=== PATIENT | female | born 1950 | race Caucasian/White ===

== ENCOUNTER → 2016-09-24 | Outpatient (CLI) | payer MEDICARE, BC | END | disposition home or self-care (01) | LOC: YCFC.O 07:40 | PROVIDERS: ATTEND Nurse Practitioner Family | DX: I10 Essential (primary) hypertension (principal); J44.9 Chronic obstructive pulmonary disease, unspecified; Z13.220 Encounter for screening for lipoid disorders ==

== ENCOUNTER → 2016-10-22 | Outpatient (CLI) | payer BC, MEDICARE | END | disposition home or self-care (01) | LOC: YCFC.O 07:39 | PROVIDERS: ATTEND Nurse Practitioner Family | DX: E03.9 Hypothyroidism, unspecified (principal) ==

== ENCOUNTER → 2016-11-07 | Outpatient (CLI) | payer BC, MEDICARE ==
--- NOTE | 2016-11-08 08:23 | RAD ---
EXAM DESCRIPTION: Hand,Right 2 Views CLINICAL HISTORY: PAIN IN RIGHT INDEX FINGER COMPARISON: None Available. TECHNIQUE: AP, LATERAL, AND OBLIQUE FINDINGS: Two-view right hand shows no fracture or dislocation. Advanced degenerative changes at the base of the thumb at the carpal metacarpal articulation is present. Soft tissue swelling of the index finger is present. A fracture or dislocation is not apparent. No destructive process is seen. The bones are adequately mineralized. IMPRESSION: 1. Soft tissue swelling of the index finger without fracture or dislocation. Electronically signed by: Constantine Nolasco MD 11/08/2016 8:21 AM CDT
== END | disposition home or self-care (01) ==
LOC: YCFC.O 09:29
PROVIDERS: ATTEND Nurse Practitioner Family
DX: L03.011 Cellulitis of right finger (principal)

== ENCOUNTER → 2016-11-29 | Outpatient (CLI) | payer BC, MEDICARE ==
--- NOTE | 2016-11-29 15:53 | US ---
EXAM DESCRIPTION: Soft Tissue,Extremity CLINICAL HISTORY: RUPTURE OF FLEXOR TENDON OF FINGER (RT HAND). Swelling between the thumb and index finger on the volar aspect. COMPARISON: None Available. TECHNIQUE: Transcutaneous scanning: Two-dimensional and Doppler modes. FINDINGS: The flexor tendon of the right index finger is intact. Minimal effusion in the right index metacarpal phalangeal joint, seen better on the volar aspect, and also in the metacarpophalangeal joint and PIP joint on the dorsal aspect. No significant effusion in the other joints. Extensor tendon is unremarkable.. IMPRESSION: No significant tendon injuries are seen in the right index finger. Joint effusions are present Electronically signed by: Parker Mace MD 11/29/2016 3:51 PM CDT
== END | disposition home or self-care (01) ==
LOC: US 13:04
PROVIDERS: ATTEND Orthopaedic Surgery
DX: S66.110A Strain of flexor muscle, fascia and tendon of right index finger at wrist and hand level, initial encounter (principal); X58.XXXA Exposure to other specified factors, initial encounter

== ENCOUNTER → 2017-11-05 | Outpatient (CLI) | payer BC, MEDICARE | LOC: YCFC.O 09:10 | PROVIDERS: ATTEND Nurse Practitioner Family | DX: E03.9 Hypothyroidism, unspecified (principal); I10 Essential (primary) hypertension; Z68.42 Body mass index [BMI] 45.0-49.9, adult ==

== ENCOUNTER → 2018-05-18 | Outpatient (CLI) | payer BC, MEDICARE | LOC: LAB.O 07:23 | PROVIDERS: ATTEND Nurse Practitioner Family | DX: E03.9 Hypothyroidism, unspecified (principal) ==

== ENCOUNTER → 2018-07-07 | Outpatient (CLI) | payer BC, MEDICARE ==
--- NOTE | 2018-07-07 11:12 | RAD ---
EXAM DESCRIPTION: Chest,2 Views CLINICAL HISTORY: DYSPNEA COMPARISON: None TECHNIQUE: PA/lateral FINDINGS: There is no acute appearing cardiac or pulmonary abnormality. Heart size is normal with normal pulmonary vascularity. No pleural effusion or pneumothorax. Linear densities in the lung bases may be crowded vessels, discoid atelectasis or linear scarring acute pneumonia is not thought as likely. Lateral view shows intact sternum and T-spine. IMPRESSION: Bilateral lower lobe discoid atelectasis. Electronically signed by: Dniesh Yadav MD 07/07/2018 11:09 AM CDT
== END ==
LOC: LAB.O 09:48
PROVIDERS: ATTEND Nurse Practitioner Family
DX: J98.11 Atelectasis (principal)

== ENCOUNTER → 2019-04-14 | Outpatient (CLI) | payer BC, MEDICARE | LOC: LAB.O 07:07 | PROVIDERS: ATTEND Nurse Practitioner | DX: I10 Essential (primary) hypertension (principal); E03.9 Hypothyroidism, unspecified; Z13.220 Encounter for screening for lipoid disorders ==

== ENCOUNTER 2020-04-08 12:57 | Emergency (ER) | payer BC, MEDICARE ==
[2020-04-08] MEDS ORDERED: predniSONE 20 MG TAB PO ONE (13:30)
[2020-04-08] MEDS ORDERED: IPRATROPIUM/ALBUTEROL 3 ML VIAL NEB ONE (13:31)
--- NOTE | 2020-04-08 14:04 | RAD ---
EXAMINATION: Chest x-ray one view. INDICATION: Cough. Shortness of breath COMPARISON: 07/07/2018 TECHNIQUE: Frontal radiograph chest. FINDINGS: Overlying EKG leads and wires obscure portions of the lungs. The cardiac silhouette is enlarged and stable Bilateral lower lung zone airspace opacities with blunting of both costophrenic angles. There are overlying airspace opacities. Mildly increased interstitial markings are present throughout both lungs. There is no pneumothorax. IMPRESSION: Suspected mild CHF/fluid overload changes. Electronically signed by: Andre Martin MD 04/08/2020 2:03 PM [facility]
[2020-04-08] MEDS ORDERED: CALCIUM GLUCONATE INJ 1 GM/10 ML VIAL IV ONE ×2 (14:28→19:17)
[2020-04-08] MEDS ORDERED: SODIUM BICARBONATE SYRINGE 50 MEQ/50 ML SYG IV ONE ×2 (14:28→19:17)
[2020-04-08] MEDS ORDERED: SODIUM CHLORIDE 0.9% (FLUSH) 10 ML SYG IV PRN (14:28)
[2020-04-08] MEDS ORDERED: DEXTROSE 50% 25 GM/50 ML SYG IV ONE ×2 (14:28→19:17)
[2020-04-08] MEDS ORDERED: SOD POLYSTYRENE SULFONATE 15 GM/60 ML BTTL PO ONE ×2 (14:28→19:17)
[2020-04-08] MEDS ORDERED: INSULIN, REG.(HUMAN) 100 U/ML VIAL IV ONE ×2 (14:28→19:17)
[2020-04-08] MEDS ORDERED: SODIUM CHLORIDE 0.9% 1000ML 1,000 ML IVS ONE ×2 (14:49→18:12)
[2020-04-08] MEDS ORDERED: CEFEPIME 2 GM in SODIUM CHL 0.9% 100ML MINI-BAG 100 ML IVPB ONE (17:26)
[2020-04-08] MEDS ORDERED: VANCOMYCIN HCL INJ 1,000 MG in SODIUM CHLORIDE 0.9% 250ML 250 ML IVPB ONE (17:26)
[2020-04-08] MEDS ORDERED: ACETAMINOPHEN SUPPOSITORY 650 MG PR ONE (17:37)
--- NOTE | 2020-04-08 17:55 | ED.PDOC ---
History of Present Illness - General Chief Complaint: Respiratory Problem Stated Complaint: SOB, lethargy, not eating well Time Seen by Provider: 04/08/20 13:16 Additional Information: History is provided primarily by the patient's daughter due to mental status changes. The patient reportedly has a history of hypothyroidism, COPD on home O2, and morbid obesity. She worked at [employer] until she retired last year. Her daughter states that during the past year she has left her house only one time. She is primarily confined to a recliner and is essentially only able to ambulate to and from the restroom. She notes that for the past three days she has been complaining of "pain" that she has been unable to localize. She also has been sleeping more and had decreased PO intake. Today her daughter felt like she was more confused than usual and she has not been eating or drinking. She is complaining of being short of breath. No fevers or known COVID contacts. She has had some mild cough. History is otherwise limited due to patient's mental status change. - History of Present Illness Allergies/Adverse Reactions: Allergies NO KNOWN ALLERGY Allergy (Verified 04/08/20 14:51) Review of Systems - Review of Systems Unable to Obtain Due To: clinical condition - altered mental status Past Medical History (General) - Patient Medical History Hx of COPD: Yes Hx Cardiac Disorders: No Hx Congestive Heart Failure: No Hx Hypertension: Yes Hx Thyroid Disease: Yes Hx Diabetes: No Hx Cancer: No Hx MRSA: Yes - Groin 2012 MRSA Source:: Wound Surgical History: tonsillectomy - Vaccination History Hx Influenza Vaccination: No Hx Pneumococcal Vaccination: No - Social History Hx Tobacco Use: Yes Hx Alcohol Use: No Hx Substance Use: No Hx Substance Use Treatment: No Hx Depression: No - Female History Patient is a Female of Child Bearing Age (10 -59 yrs old): No Patient : No Family Medical History - Family History Mother Living Status: Hx Family;Other: COPD emphysea Physical Exam - Physical Exam General Appearance: Agitated, Anxious, Obvious distress, Ill Appearing, Other - Morbidly obese Eyes, Ears, Nose, Throat Exam: normal ENT inspection Neck: non-tender, full range of motion, supple, normal inspection Respiratory: respiratory distress, decreased breath sounds, accessory muscle use, wheezing - inspiratory and expiratory Cardiovascular/Chest: regular rate, rhythm, other - Pitting edema bilateral lower extremities Gastrointestinal/Abdominal: non tender, soft, no organomegaly Extremity: pedal edema, other - stasis dermatitis to bilateral lower extremities Neurologic: no motor/sensory deficits, alert, disoriented x 3 Skin Exam: other - mild skin breakdown appreciated underneath pannus, stage II pressure ulcers noted to her buttocks Progress - Progress Progress: 04/08/20 19:[address] Harrell at [facility], accepts for transfer. - Results/Orders Results/Orders: 04/08/20 14:28 Insulin, Reg.(Human) [HumuLIN R] DOSE units IV ONCE ONE Sodium Chloride 0.9% (Flush) [Saline Flush Syringe] 3 ml IV PRN PRN 04/08/20 17:45 EKG STAT 04/08/20 17:58 BLOOD CULTURE Stat 04/08/20 19:17 Insulin, Reg.(Human) [HumuLIN R] DOSE units IV ONCE ONE 04/08/20 19:40 Head [CT] Stat Laboratory Results - last 24 hr 04/08/20 04/08/20 04/08/20 13:48 13:48 13:48 WBC 15.2 H RBC 3.29 L Hgb 9.3 L Hct 31.3 L MCV 95.3 MCH 28.3 MCHC 29.7 L RDW 18.7 H Plt Count 406 H MPV 7.6 Absolute Neuts (auto) Not Reportable Absolute Lymphs (auto) Not Reportable Absolute Monos (auto) Not Reportable Absolute Eos (auto) Not Reportable Neutrophils % Not Reportable Neutrophils % (Manual) 86.0 H Lymphocytes % Not Reportable Lymphocytes % (Manual) 6.0 Monocytes % Not Reportable Monocytes % (Manual) 3.0 Eosinophils % Not Reportable Basophils % Not Reportable Band Neutrophils 5.0 H Eosinophils 0.0 Basophils 0.0 Platelet Estimate Increased Normal RBC Morphology 1+ovalocytes Sodium 140 Potassium 7.8 H* Chloride 110 Carbon Dioxide 9 L* Anion Gap 28.8 H BUN 170 H* Creatinine 8.04 H* BUN/Creatinine Ratio 21.1 H Random Glucose 120 H Serum Osmolality Not Reportable Lactic Acid Calcium 7.7 L Total Bilirubin 0.6 AST 46 H ALT 29 Alkaline Phosphatase 100 Creatine Kinase 1829 H* CK-MB (CK-2) 27.5 H* CK-MB (CK-2) % 1.50 Troponin I 0.02 Serum Total Protein 7.6 Albumin 3.1 L Globulin 4.5 H Albumin/Globulin Ratio 0.7 L 04/08/20 04/08/20 13:48 16:36 WBC RBC Hgb Hct MCV MCH MCHC RDW Plt Count MPV Absolute Neuts (auto) Absolute Lymphs (auto) Absolute Monos (auto) Absolute Eos (auto) Neutrophils % Neutrophils % (Manual) Lymphocytes % Lymphocytes % (Manual) Monocytes % Monocytes % (Manual) Eosinophils % Basophils % Band Neutrophils Eosinophils Basophils Platelet Estimate Normal RBC Morphology Sodium 140 Potassium 7.2 H* Chloride 110 Carbon Dioxide 11 L* Anion Gap 26.2 H BUN 180 H* Creatinine 8.58 H* BUN/Creatinine Ratio 21.0 H Random Glucose 164 H D Serum Osmolality Not Reportable Lactic Acid 1.6 Calcium 7.8 L Total Bilirubin AST ALT Alkaline Phosphatase Creatine Kinase CK-MB (CK-2) CK-MB (CK-2) % Troponin I Serum Total Protein Albumin Globulin Albumin/Globulin Ratio Medical Decision Making Patient brought to ED with three days of "pain" unable to localize with shortness of breath. In the ED she was noted to have COPD exacerbation, improved with steroids and nebs. Labs indicative of acute renal failure secondary to sepsis without shock. IVF were held due to clinical volume overload and findings of CHF. She has wounds to her lower extremity and buttocks with surrounding erythema concerning for source. After blood cultures she was started on broad spectrum Cefepime and Vancomycin. She was treated with kayexalate, calcium, insulin/d50, albuterol, bicarbonate for her hyperkalemia. EKG shows mild peaked t-waves without significant QRS widening. She is transferred to outside hospital for higher level of care, specialty evaluation. Sergio Mast MD Emergency Medicine Physician Number [id number] - EKG/XRAY/CT Comments: 1301 sinus rhythm, occasional PACs, right axis, normal intervals no STEMI Departure - Departure Clinical Impression: Hyperkalemia, COPD exacerbation Acute renal failure (ARF) Qualifiers: Acute renal failure type: unspecified Qualified Code(s): N17.9 - Acute kidney failure, unspecified Sepsis Qualifiers: Sepsis type: sepsis due to unspecified organism Sepsis acute organ dysfunction status: with acute organ dysfunction Severe sepsis acute organ dysfunction type: acute renal failure Acute renal failure type: unspecified Severe sepsis shock status: without septic shock Qualified Code(s): A41.9 - Sepsis, unspecified organism Disposition: Transfer to Hospital Condition: Fair Departure Forms: ED Discharge - Pt. Copy, Patient Portal Self Enrollment Referrals: Tabitha Yan FNP [Primary Care Provider] - 1-2 Weeks Critical Care Note - Critical Care Note Total Time (mins): 35 Comments: 35 minutes of critical care time spent to prevent severe electrolyte abnormality, renal failure, sepsis, shock.
[2020-04-08] MEDS ORDERED: ALBUTEROL SULFATE 2.5 MG/3 ML VIAL NEB ONE (19:17)
[2020-04-08] MEDS ORDERED: SODIUM BICARBONATE VIAL 50 MEQ/50 ML VIAL ONE (19:30)
--- NOTE | 2020-04-08 20:40 | CT ---
EXAM DESCRIPTION: Head 04/08/2020 8:37 PM MULCHER [facility]PERATOR CLINICAL HISTORY: 69 years, Female, altered mental status COMPARISON: None. FINDINGS: Multiple transaxial tomograms of the brain were obtained from the base of the skull to the vertex without contrast. 2-D multiplanar reformats and the coronal and sagittal plane were performed and reviewed. An individualized dose optimization technique, Automated Exposure Control, was utilized for the performed procedure. Study is severely compromised due to several images with motion artifact greatly limiting evaluation. Brain there is findings suggesting most likely brain atrophy. No definitive gross major hemorrhage are seen. Lateral ventricles and cisterns displace normal appearance. No intra or extra axial fluid collections were seen. The bone windows demonstrate no definitive areas of displaced fractures although motion artifact greatly limits the evaluation. Again there is noted the presence of opacified left maxillary sinus. IMPRESSION: SEVERELY COMPROMISED STUDY MARKEDLY LIMITING EVALUATION. NO SIGNIFICANT MAJOR GROSS INTRACRANIAL HEMORRHAGE SEEN. Electronically signed by: Twan Mead MD 04/08/2020 8:38 PM MULCH[facility] OPERATOR
[2020-04-08 21:02] VITALS: TEMP 97.9; O2SAT 100
[2020-04-08 21:03] VITALS: BP 96/55
== END 2020-04-08 20:55 | disposition short-term general hospital (02) ==
LOC: ER 12:57
DX: A41.9 Sepsis, unspecified organism (principal); J44.1 Chronic obstructive pulmonary disease with (acute) exacerbation; N17.9 Acute kidney failure, unspecified; E87.5 Hyperkalemia; I49.1 Atrial premature depolarization; L89.302 Pressure ulcer of unspecified buttock, stage 2; E07.9 Disorder of thyroid, unspecified; I10 Essential (primary) hypertension; E66.01 Morbid (severe) obesity due to excess calories; Z87.891 Personal history of nicotine dependence; Z99.81 Dependence on supplemental oxygen; Z20.822 Contact with and (suspected) exposure to COVID-19; Z68.45 Body mass index [BMI] 70 or greater, adult
CPT/HCPCS: 36415; 70450; 71045; 80048; 80053; 82550; 82553; 83605; 84484; 85025; 87040; 87486; 87581; 87633; 87635; 93005; A4216; J0692; J3370; J7050; J7512; J7611; J7620; J7799